=== PATIENT | male | born 1985 | race Caucasian/White ===

== ENCOUNTER 2021-12-07 12:04 | Emergency (ER) | payer SELFPAY ==
[~2021-12-07] VITALS: Ht 170.2 cm; Wt 163.3 kg
[~2021-12-07 12:04] MED LIST: LEVAQUIN500 MG PO; NORCO 10-325 T1 EACH PO; VYVANSE60 MG PO
[2021-12-07 12:33] LABS: BASOPHILS # (AUTO) 0.1 (0.0-0.1); BASOPHILS % 0.8 % (0.0-1.0); EOSINOPHILS # (AUTO) 0.2 (0.0-0.4); EOSINOPHILS % 2.2 % (0.0-6.0); HEMOGLOBIN 14.6 g/dL (14.0-18.0); LYMPHOCYTES # (AUTO) 2.6 (1.0-3.2); MEAN CORPUSCULAR HEMOGLOBIN 29.2 pg (28-32); MEAN CORPUSCULAR HGB CONC 32.4 g/dL (31-35); MONOCYTES # (AUTO) 0.4 (0.2-0.8); MONOCYTES % 4.8 % (4.4-11.3); NEUTROPHILS # (AUTO) 5.8 (2.1-6.9); PLATELET COUNT 273 x10e3/uL (140-360); RED CELL DISTRIBUTION WIDTH 12.6 % (11.7-14.4)
[2021-12-07] MEDS ORDERED: SODIUM CHLORIDE 0.9% 1000ML 1,000 ML IV STA (12:52)
[2021-12-07 12:55] LABS: CLARITY,URINE CLEAR (CLEAR); COLOR,URINE YELLOW (YELLOW)
[2021-12-07 12:57] LABS: INR 0.83
[2021-12-07 12:57] LABS: KETONES,URINE TRACE (NEGATIVE); LEUKOCYTE ESTERASE ,URINE NEGATIVE (NEGATIVE); NITRITE,URINE NEGATIVE (NEGATIVE); PROTEIN,URINE DIPSTICK 1+ (NEGATIVE)
[2021-12-07 12:58] LABS: AMPHETAMINES SCREEN,URINE NEGATIVE (NEGATIVE); BACTERIA,URINE RARE /HPF; BENZODIAZEPINES SCREEN,URINE POSITIVE (NEGATIVE); EPITHELIAL CELLS,URINE FEW /LPF; PHENCYCLIDINE SCREEN,URINE NEGATIVE (NEGATIVE); RBC,URINE 0-5 /HPF (0-5); URINE UROBILINOGEN 0.2 mg/dL (0.2 - 1); WBC,URINE (MAN) 0-5 /HPF (0-5)
[2021-12-07 12:58] LABS: PARTIAL THROMBOPLASTIN TIME 24.5 seconds (23.8-35.5)
[2021-12-07 13:06] LABS: ALANINE AMINOTRANSFERASE 60 IU/L (0-55); ALBUMIN 3.7 g/dL (3.5-5.0); ALKALINE PHOSPHATASE 98 IU/L (40-150); BLOOD UREA NITROGEN 13 mg/dL (7-26); BUN/CREATININE RATIO 15 (6-25); CALCIUM 9.6 mg/dL (8.4-10.2); CARBON DIOXIDE 19 mmol/L (22-29); CHLORIDE 101 mmol/L (98-107); CREATINE KINASE 64 IU/L (30-200); CREATININE, SERUM 0.89 mg/dL (0.72-1.25); EST GLOMERULAR FILTRATION RATE 98 ML/MIN (60-); GLUCOSE 380 mg/dL (74-118); MAGNESIUM 1.8 MG/DL (1.3-2.1); SODIUM 133 mmol/L (136-145)
[2021-12-07 13:26] LABS: THYROID STIMULATING HORMONE 2.042 uIU/mL (0.350-4.940)
[2021-12-07] MEDS ORDERED: METOPROLOL TARTRATE 25 MG TAB PO ONE (14:45)
== END 2021-12-07 16:47 | disposition home or self-care (01) ==
LOC: ER 12:15
DX: R07.89 Other chest pain (principal); R73.9 Hyperglycemia, unspecified; F41.9 Anxiety disorder, unspecified; F90.9 Attention-deficit hyperactivity disorder, unspecified type; Z20.822 Contact with and (suspected) exposure to COVID-19
CPT/HCPCS: 36415; 71045; 80053; 80307; 81001; 82550; 82553; 83735; 84443; 84484; 85025; 85379; 85610; 85730; 99284; J7030; U0002; 93005

== ENCOUNTER 2022-06-07 21:51 | Emergency (ER) | payer SELFPAY ==
[~2022-06-07] VITALS: Ht 170.2 cm; Wt 163.3 kg
[2022-06-07] MEDS ORDERED: SODIUM CHLORIDE 0.9% 1000ML 1,000 ML IV STA (21:54)
[2022-06-07] MEDS ORDERED: FENTANYL CITRATE/PF 100MCG/2 ML INJ IV PRN (22:00)
[2022-06-07] MEDS ORDERED: ONDANSETRON HCL INJ 2MG/ML 2ML 2 MG/ML VIAL IV PRN (22:00)
[2022-06-07 22:18] LABS: BASOPHILS # (AUTO) 0.1 (0.0-0.1); BASOPHILS % 0.4 % (0.0-1.0); EOSINOPHILS # (AUTO) 0.1 (0.0-0.4); EOSINOPHILS % 1.1 % (0.0-6.0); HEMATOCRIT 46.1 % (38.2-49.6); HEMOGLOBIN 15.6 g/dL (14.0-18.0); LYMPHOCYTES # (AUTO) 2.6 (1.0-3.2); LYMPHOCYTES % 22.6 % (18.0-39.1); MEAN CORPUSCULAR HEMOGLOBIN 29.9 pg (28-32); MEAN CORPUSCULAR HGB CONC 33.8 g/dL (31-35); MEAN CORPUSCULAR VOLUME 88.3 fL (81-99); MONOCYTES # (AUTO) 0.5 (0.2-0.8); MONOCYTES % 4.6 % (4.4-11.3); NEUTROPHILS # (AUTO) 7.9 (2.1-6.9); NEUTROPHILS % 70.3 % (38.7-80.0); PLATELET COUNT 298 x10e3/uL (140-360); RED BLOOD COUNT 5.22 x10e6/uL (4.3-5.7); RED CELL DISTRIBUTION WIDTH 12.2 % (11.7-14.4)
[2022-06-07 22:38] LABS: ALBUMIN 3.9 g/dL (3.5-5.0); ANION GAP 19.5 mmol/L (8-16); CREATININE, SERUM 0.91 mg/dL (0.72-1.25); POTASSIUM 3.5 mmol/L (3.5-5.1)
[2022-06-07] MEDS ORDERED: IOPAMIDOL 370 MG/ML 100 ML INFUS..BTL INJ ONE (23:01)
[2022-06-07] MEDS ORDERED: INSULIN REGULAR, HUMAN 100 UNIT/1 ML IV ONE (23:15)
[2022-06-08] MEDS ORDERED: DICYCLOMINE HCL20 MG PO (00:20)
[2022-06-08] MEDS ORDERED: METFORMIN HCL500 M2 PO (00:28)
[2022-06-08 00:37] VITALS: BP 127/82
== END 2022-06-08 00:38 | disposition home or self-care (01) ==
LOC: ER 21:54
DX: R10.33 Periumbilical pain (principal); R11.0 Nausea; Z20.822 Contact with and (suspected) exposure to COVID-19
CPT/HCPCS: 36415; 71045; 74177; 80053; 83690; 85025; 93005; 99284; C9113; J2405; J3010; J7030; Q9967; U0002

== ENCOUNTER 2024-09-20 07:12 | Emergency (ER) | payer SELFPAY ==
[~2024-09-20] VITALS: Ht 170.2 cm; Wt 151.0 kg
[~2024-09-20 07:12] MED LIST changes: +DICYCLOMINE HCL20 MG PO; +METFORMIN HCL500 M2 PO
[2024-09-20 07:15] VITALS: TEMP 97.8
[2024-09-20 07:33] VITALS: PULSE 107; RESP 18; O2SAT 100
[2024-09-20 07:35] LABS: BASOPHILS # (AUTO) 0.1 (0.0-0.1); BASOPHILS % 0.7 % (0.0-1.0); EOSINOPHILS # (AUTO) 0.3 (0.0-0.4); EOSINOPHILS % 3.3 % (0.0-6.0); HEMATOCRIT 50.1 % (38.2-49.6); HEMOGLOBIN 16.2 g/dL (14.0-18.0); LYMPHOCYTES # (AUTO) 3.8 (1.0-3.2); LYMPHOCYTES % 41.2 % (18.0-39.1); MEAN CORPUSCULAR HEMOGLOBIN 29.9 pg (28-32); MEAN CORPUSCULAR HGB CONC 32.3 g/dL (31-35); MEAN CORPUSCULAR VOLUME 92.6 fL (81-99); MONOCYTES # (AUTO) 0.5 (0.2-0.8); MONOCYTES % 5.4 % (4.4-11.3); NEUTROPHILS # (AUTO) 4.4 (2.1-6.9); NEUTROPHILS % 48.3 % (38.7-80.0); PLATELET COUNT 270 x10e3/uL (140-360); RED BLOOD COUNT 5.41 x10e6/uL (4.3-5.7); RED CELL DISTRIBUTION WIDTH 12.7 % (11.7-14.4); WHITE BLOOD COUNT 9.13 x10e3/uL (4.8-10.8)
[2024-09-20 07:55] LABS: ALANINE AMINOTRANSFERASE 40 IU/L (0-55); ALBUMIN/GLOBULIN RATIO 0.9 (0.8-2.0); ALKALINE PHOSPHATASE 89 IU/L (40-150); ANION GAP 18.1 mmol/L (8-16); BILIRUBIN,TOTAL 0.4 mg/dL (0.2-1.2); BLOOD UREA NITROGEN 15 mg/dL (7-26); BUN/CREATININE RATIO 19 (6-25); CALCIUM 10.3 mg/dL (8.4-10.2); CARBON DIOXIDE 20 mmol/L (22-29); CHLORIDE 103 mmol/L (98-107); CREATININE, SERUM 0.79 mg/dL (0.72-1.25); EST GLOMERULAR FILTRATION RATE 117 ML/MIN (>=60); GLUCOSE 272 mg/dL (74-118); POTASSIUM 4.1 mmol/L (3.5-5.1); SODIUM 137 mmol/L (136-145); TOTAL PROTEIN 8.4 g/dL (6.5-8.1)
[2024-09-20 08:06] LABS: TROPONIN I < 0.001 ng/mL (0-0.300)
== END 2024-09-20 08:20 | disposition home or self-care (01) ==
LOC: ER 07:17
DX: R07.89 Other chest pain (principal); R05.9 Cough, unspecified; F90.9 Attention-deficit hyperactivity disorder, unspecified type; R94.31 Abnormal electrocardiogram [ECG] [EKG]
CPT/HCPCS: 36415; 71045; 80053; 84484; 85025; 93005; 99284